=== PATIENT | female | born 1990 | race Caucasian/White ===

== ENCOUNTER 2020-04-05 13:50 | Emergency (ER) | payer MEDICAID ==
[~2020-04-05] VITALS: Ht 167.6 cm; Wt 70.6 kg
[2020-04-05 14:05] VITALS: BP 116/70
== END 2020-04-05 16:29 | disposition home or self-care (01) ==
LOC: ER 13:51
DX: Z02.89 Encounter for other administrative examinations (principal); R53.83 Other fatigue; F11.90 Opioid use, unspecified, uncomplicated
CPT/HCPCS: 99281